=== PATIENT | female | born 1965 | race Caucasian/White ===

== ENCOUNTER → 2018-12-15 | Outpatient (CLI) | payer OTHER ==
--- NOTE | 2018-12-15 12:16 | US ---
EXAMINATION TYPE: US kidneys/renal and bladder DATE OF EXAM: 12/15/2018 COMPARISON: NONE CLINICAL HISTORY: N39.0 RECURRENT UTI. EXAM MEASUREMENTS: Right Kidney: 9.2 x 8.6 x 4.6 cm Left Kidney: 9.8 x 5.6 x 4.9 cm Post Void Residual Volume: 105.1 mL Right Kidney: No hydronephrosis or masses seen Left Kidney: No hydronephrosis or masses seen Bladder: wnl Bilateral Jets seen: yes Normal Post Void Residual: no, as volume is greater than 50.0ml. There is no evidence for hydronephrosis at this point in time. No nephrolithiasis is seen. No andrea s are identified. The urinary bladder is not greatly distended on images saved. Bilateral ureteral jets are seen. Exam noted suboptimal due to patient's underlying medical condition of mental handicap, this affects patient's ability to follow commands and breath-hold. Scanning of bilateral kidneys shows no gross hy dronephrosis or suspicious masses. IMPRESSION: Suboptimal study without hydronephrosis identified bilaterally.
== END ==
LOC: RADUSWWP 10:57 → EEVIPCON 11:00
PROVIDERS: ATTEND Urology
DX: N39.0 Urinary tract infection, site not specified (principal)
CPT/HCPCS: 76770

== ENCOUNTER → 2019-04-09 | Outpatient (CLI) | payer OTHER ==
[2019-04-09 08:36] LABS: Basophils % (A) 0 %; Eosinophils # (A) 0.1 k/uL (0-0.7); Eosinophils % (A) 2 %; HCT 38.9 % (34.0-46.0); HGB 12.5 gm/dL (11.4-16.0); Lymphocytes # (A) 0.9 k/uL (1.0-4.8); Lymphocytes % (A) 23 %; MCH 28.6 pg (25.0-35.0); MCHC 32.2 g/dL (31.0-37.0); MCV 88.9 fL (80.0-100.0); Mean Platelet Volume 6.9; Monocytes # (A) 0.2 k/uL (0-1.0); Monocytes % (A) 6 %; Neutrophils # (A) 2.5 k/uL (1.3-7.7); Neutrophils % (A) 67 %; Platelet Count 215 k/uL (150-450); RBC 4.38 m/uL (3.80-5.40); RDW 13.1 % (11.5-15.5); WBC 3.7 k/uL (3.8-10.6)
[2019-04-09 16:49] LABS: Albumin 4.3 g/dL (3.80-4.90); Albumin/Globulin Ratio 2.05 (1.60-3.17); Anion Gap 7.8 mmol/L (4.00-12.00); Bilirubin, Conjugated 0.3 mg/dL (0.20-0.40); Bilirubin,Unconjugated 0.7 mg/dL; Calcium 9.6 mg/dL (8.7-10.3); Carbon Dioxide 26.2 mmol/L (21.6-31.8); Globulin 2.1 g/dL (1.6-3.3); Potassium 4.1 mmol/L (3.5-5.5); Total Protein 6.4 g/dL (6.2-8.2)
[2019-04-09 16:56] LABS: T4, Free (Free Thyroxine) 1.2 ng/dL (0.80-1.80)
[2019-04-09 17:06] LABS: Hemoglobin A1C 5.6 % (4.0-6.0)
== END | disposition home or self-care (01) ==
LOC: LABWHC1 07:51
PROVIDERS: ATTEND Nurse Practitioner Family
DX: Z51.81 Encounter for therapeutic drug level monitoring (principal); Z79.899 Other long term (current) drug therapy
CPT/HCPCS: 36415; 80053; 80061; 82248; 83036; 84439; 84443; 85025

== ENCOUNTER → 2021-02-21 | Outpatient (CLI) | payer OTHER ==
--- NOTE | 2021-02-21 09:55 | XR ---
EXAMINATION TYPE: XR abdomen complete w decub DATE OF EXAM: 02/21/2021 HISTORY: Pain. Technique: 3 views of the abdomen are submitted. Comparison: None. Findings: There is no convincing evidence of pneumoperitoneum. The Bowel gas pattern is nonspecific and nonobstructive. No sizable air-fluid levels are seen. No mass effects are noted. No renal calcifications are identified. IMPRESSION: 1. Nonspecific nonobstructive bowel gas pattern
== END | disposition home or self-care (01) ==
LOC: RADXRMAIN 09:14
PROVIDERS: ATTEND Family Medicine
DX: R10.9 Unspecified abdominal pain (principal)
CPT/HCPCS: 74021

== ENCOUNTER 2021-02-24 20:23 | Emergency (ER) | payer OTHER ==
[2021-02-24] MEDS ORDERED: SODIUM CHLORIDE 0.9% 1,000 ML IV STA (22:21)
[2021-02-24 23:44] LABS: Basophils % (A) 0 %; Chloride 103 mmol/L (98-107); Eosinophils # (A) 0.1 k/uL (0-0.7); Eosinophils % (A) 1 %; HCT 39.3 % (34.0-46.0); HGB 12.9 gm/dL (11.4-16.0); Lymphocytes # (A) 1.4 k/uL (1.0-4.8); Lymphocytes % (A) 26 %; MCHC 32.7 g/dL (31.0-37.0); MCV 88.7 fL (80.0-100.0); Monocytes # (A) 0.4 k/uL (0-1.0); Monocytes % (A) 7 %; Neutrophils # (A) 3.5 k/uL (1.3-7.7); Neutrophils % (A) 64 %; Platelet Count 228 k/uL (150-450); RBC 4.43 m/uL (3.80-5.40); RDW 12.9 % (11.5-15.5); WBC 5.5 k/uL (3.8-10.6)
[2021-02-24 23:46] LABS: ALT 21 U/L (4-34); AST 76 U/L (14-36); African American GFR (CKD) >90 (>60 ml/min/1.73 sqM); Albumin 4.2 g/dL (3.5-5.0); Alkaline Phosphatase 83 U/L (38-126); Amylase 61 U/L (30-110); Anion Gap 6 mmol/L; Blood Urea Nitrogen 21 mg/dL (7-17); Calcium 9.4 mg/dL (8.4-10.2); Carbon Dioxide 27 mmol/L (22-30); Glucose 97 mg/dL (74-99); Lipase 102 U/L (23-300); Non-African American GFR(CKD) 89 (>60 ml/min/1.73 sqM); Potassium 4.1 mmol/L (3.5-5.1); Sodium 136 mmol/L (137-145); Total Bilirubin 0.8 mg/dL (0.2-1.3); Total Protein 7.1 g/dL (6.3-8.2)
--- NOTE | 2021-02-24 23:48 | XR ---
EXAMINATION TYPE: XR KUB DATE OF EXAM: 02/24/2021 COMPARISON: 02/21/2021 HISTORY: Abdominal pain TECHNIQUE: 2 views upright FINDINGS: There is no sign of intestinal obstruction or pneumoperitoneum. Fecal pattern is fairly nor mal. There is no evidence of a mass. Lung bases are clear. There are no pathologic calcifications ove r the kidneys. IMPRESSION: Nonacute abdomen. No adverse change.
[2021-02-25 00:17] LABS: Appearance,Urine Cloudy (Clear); Bacteria,Urine Rare /hpf; Bilirubin,Urine Negative (Negative); Blood,Urine Negative (Negative); Color,Urine Yellow; Glucose,Urine (UA) Negative (Negative); Ketones,Urine 1+ (Negative); Leukocyte Esterase,Urine Large (Negative); Mucus,Urine Many /hpf; Nitrite,Urine Negative (Negative); Protein,Urine Trace (Negative); RBC,Urine 6 /hpf (0-5); Specific Gravity,Urine 1.022 (1.001-1.035); Squamous Epithelial Cell,Urine 10 /hpf (0-4); Urobilinogen,Urine <2.0 mg/dL (<2.0); WBC,Urine 72 /hpf (0-5)
[2021-02-25] MEDS ORDERED: cefTRIAXone IN SWFI 1,000 MG/10 ML SYRINGE IVP STA (00:42)
[2021-02-25 01:37] VITALS: RESP 18; TEMP 98.4
--- NOTE | 2021-02-25 01:49 | ED ---
Abdominal Pain HPI - General Chief Complaint: Abdominal Pain Stated Complaint: dehydrated, barely eating Time Seen by Provider: 02/24/21 21:33 Source: patient, Caregiver Limitations: altered mental status, physical limitation - History of Present Illness Initial Comments: 55-year-old female patient who is developmentally disabled presents to the emergency department today for evaluation of abdominal discomfort, constipation, decreased appetite. Sister whose caregiver states that she has had decreased food and fluid intake today. She believes she is dehydrated. States she's been having issues with constipation. Did see her primary care physician was given mineral enemas and glycerin suppositories which did cause her to have 2-3 small hard bowel movements. She also has taken magnesium citrate. Denies any fever or chills. Denies any vomiting. Patient does not communicate very well and sister provides all history. - Related Data Home Medications Medication Instructions Recorded Confirmed Citalopram Hydrobromide [CeleXA] 40 mg PO DAILY 02/24/21 02/24/21 Fluticasone Nasal [place] [Flonase 2 spr EA NOSTRIL HS 02/24/21 02/24/21 Nasal [place]] Glycerin Adult Suppository 1 supp RECTAL ONCE PRN 02/24/21 02/24/21 Lactulose 20 gm PO BID 02/24/21 02/24/21 Magnesium Citrate [Citrate of 296 ml PO ONCE PRN 02/24/21 02/24/21 Magnesia] Mineral Oil 133 ml RECTAL ONCE PRN 02/24/21 02/24/21 Nitrofurantoin Macrocrystal 100 mg PO DAILY 02/24/21 02/24/21 [Nitrofurantoin] Wheat Dextrin [Benefiber] 1 packet PO BID 02/24/21 02/24/21 risperiDONE [RisperDAL] 0.25 mg PO HS 02/24/21 02/24/21 Previous Rx's Medication Instructions Recorded Cephalexin [Keflex Susp] 10 ml PO BID #140 ml 02/25/21 Allergies Allergy/AdvReac Type Severity Reaction Status Date / Time No Known Allergies Allergy Verified 02/24/21 23:39 Review of Systems ROS Statement: Those systems with pertinent positive or pertinent negative responses have been documented in the HPI. ROS Other: All systems not noted in ROS Statement are negative. Past Medical History Past Medical History: No Reported History History of Any Multi-Drug Resistant Organisms: None Reported Past Surgical History: No Surgical Hx Reported Past Psychological History: Anxiety, Depression, Schizophrenia Smoking Status: Never smoker Past Alcohol Use History: None Reported Past Drug Use History: None Reported General Exam Limitations: altered mental status, physical limitation General appearance: alert, in no apparent distress Eye exam: Present: normal appearance, PERRL, EOMI. Absent: scleral icterus, conjunctival injection, periorbital swelling ENT exam: Present: normal exam, normal oropharynx, mucous membranes moist Respiratory exam: Present: normal lung sounds bilaterally. Absent: respiratory distress, wheezes, rales, rhonchi, stridor Cardiovascular Exam: Present: regular rate, normal rhythm, normal heart sounds. Absent: systolic murmur, diastolic murmur, rubs, gallop, clicks GI/Abdominal exam: Present: soft, normal bowel sounds. Absent: distended, tenderness, guarding, rebound, rigid Neurological exam: Present: alert, oriented X3, CN II-XII intact Psychiatric exam: Present: normal affect, normal mood Skin exam: Present: warm, dry, intact, normal color. Absent: rash Course Vital Signs 02/24/21 02/24/21 02/25/21 21:17 23:00 01:15 Temperature 98.6 F 98.3 F 98.4 F Pulse Rate 91 83 86 Respiratory 20 20 18 Rate Blood Pressure 143/92 130/86 133/80 O2 Sat by Pulse 97 98 98 Oximetry 02/25/21 02:06 Temperature 98.4 F Pulse Rate 85 Respiratory 18 Rate Blood Pressure 156/90 O2 Sat by Pulse 97 Oximetry Medical Decision Making - Medical Decision Making 55-year-old female patient presented with sister who is primary caregiver for evaluation of abdominal discomfort constipation. Physical examination revealed a soft nontender abdomen. Vitals are within normal ranges. Labs are unremarkable. KUB x-ray was obtained and showed fairly normal stool pattern. She did have urinary tract infection. We did give a milk and molasses enema which did provide a small bowel movement. They would like to be discharged home. We will treat for the UTI. We discussed [id number] remedies for constipation. They're instructed to follow-up with the primary care physician on Friday. Return parameters were discussed in detail. They verbalize understanding and agree with this plan. My attending is Dr. Aguilar. - Lab Data Result diagrams: 02/24/21 23:22 02/24/21 23:22 Lab Results 02/24/21 02/24/21 02/25/21 Range/Units 23:22 23:22 00:05 WBC 5.5 (3.8-10.6) k/uL RBC 4.43 (3.80-5.40) m/uL Hgb 12.9 (11.4-16.0) gm/dL Hct 39.3 (34.0-46.0) % MCV 88.7 (80.0-100.0) fL MCH 29.0 (25.0-35.0) pg MCHC 32.7 (31.0-37.0) g/dL RDW 12.9 (11.5-15.5) % Plt Count 228 (150-450) k/uL MPV 7.0 Neutrophils % 64 % Lymphocytes % 26 % Monocytes % 7 % Eosinophils % 1 % Basophils % 0 % Neutrophils # 3.5 (1.3-7.7) k/uL Lymphocytes # 1.4 (1.0-4.8) k/uL Monocytes # 0.4 (0-1.0) k/uL Eosinophils # 0.1 (0-0.7) k/uL Basophils # 0.0 (0-0.2) k/uL Sodium 136 L (137-145) mmol/L Potassium 4.1 (3.5-5.1) mmol/L Chloride 103 (98-107) mmol/L Carbon Dioxide 27 (22-30) mmol/L Anion Gap 6 mmol/L BUN 21 H (7-17) mg/dL Creatinine 0.75 (0.52-1.04) mg/dL Est GFR (CKD-EPI)AfAm >90 (>60 ml/min/1.73 sqM) Est GFR (CKD-EPI)NonAf 89 (>60 ml/min/1.73 sqM) Glucose 97 (74-99) mg/dL Calcium 9.4 (8.4-10.2) mg/dL Total Bilirubin 0.8 (0.2-1.3) mg/dL AST 76 H (14-36) U/L ALT 21 (4-34) U/L Alkaline Phosphatase 83 (38-126) U/L Total Protein 7.1 (6.3-8.2) g/dL Albumin 4.2 (3.5-5.0) g/dL Amylase 61 (30-110) U/L Lipase 102 (23-300) U/L Urine Color Yellow Urine Appearance Cloudy H (Clear) Urine pH 7.0 (5.0-8.0) Ur Specific [place] 1.022 (1.001-1.035) Urine Protein Trace H (Negative) Urine Glucose (UA) Negative (Negative) Urine Ketones 1+ H (Negative) Urine Blood Negative (Negative) Urine Nitrite Negative (Negative) Urine Bilirubin Negative (Negative) Urine Urobilinogen <2.0 (<2.0) mg/dL Ur Leukocyte Esterase Large H (Negative) Urine RBC 6 H (0-5) /hpf Urine WBC 72 H (0-5) /hpf Ur Squamous Epith Cells 10 H (0-4) /hpf Urine Bacteria Rare H (None) /hpf Urine Mucus Many H (None) /hpf - Radiology Data Radiology results: report reviewed, image reviewed 2 views of the abdomen are obtained. Pressure in its entirety. Impression by Dr. Ashley shows nonacute abdomen. No adverse change. Specifically reads fecal pattern is fairly normal. Disposition Clinical Impression: Decreased appetite, Urinary tract infection Disposition: HOME SELF-CARE Condition: Good Instructions (If sedation given, give patient instructions): Constipation (ED), Urinary Tract Infection in Women (ED) Additional Instructions: Consider using Dulcolax suppositories and fleets enemas [id number]. Follow-up with the primary care physician on Friday. Complete antibiotic prescription in full. Return to the emergency department for any new, worsening, or concerning symptoms. Prescriptions: Cephalexin [Keflex Susp] 10 ml PO BID #140 ml Is patient prescribed a controlled substance at d/c from ED?: No Referrals: None,Stated [Primary Care Provider] - 1-2 days Time of Disposition: 01:49
[2021-02-25 02:10] VITALS: BP 156/90; PULSE 85
== END 2021-02-25 02:06 | disposition home or self-care (01) ==
LOC: EC 20:23
DX: N39.0 Urinary tract infection, site not specified (principal); R63.0 Anorexia; F41.9 Anxiety disorder, unspecified; F32.9 Major depressive disorder, single episode, unspecified
CPT/HCPCS: 36415; 74018; 80053; 81001; 82150; 83690; 85025; 87086; 96361; 96374; 99284

== ENCOUNTER → 2021-09-12 | Outpatient (CLI) | payer OTHER ==
[2021-09-12 16:56] LABS: Basophils # (A) 0.02 X 10*3/uL (0.00-0.10); Basophils % (A) 0.6 %; Eosinophils # (A) 0.02 X 10*3/uL (0.04-0.35); Eosinophils % (A) 0.6 %; HCT 39.7 % (37.2-46.3); HGB 12.4 g/dL (12.0-15.0); Lymphocytes % (A) 22.9 %; MCH 29.7 pg (27.0-32.0); MCHC 31.2 g/dL (32.0-37.0); Mean Platelet Volume 10.4 fL (9.5-12.2); Monocytes # (A) 0.19 X 10*3/uL (0.20-1.00); Monocytes % (A) 5.4 %; Neutrophils # (A) 2.46 X 10*3/uL (1.80-7.70); Neutrophils % (A) 70.5 %; Platelet Count 241 X 10*3/uL (140-440); RBC 4.18 X 10*6/uL (4.10-5.20); RDW 12.7 % (11.5-14.5); WBC 3.49 X 10*3/uL (4.50-10.00)
[2021-09-12 19:14] LABS: African American GFR (CKD) 81.8 (60.0-200.0); Albumin 4.4 g/dL (3.8-4.9); Albumin/Globulin Ratio 1.88 (1.60-3.17); Anion Gap 10.4 mmol/L (4.00-12.00); BUN/Creat Ratio 20.46 Ratio (12.00-20.00); Blood Urea Nitrogen 18.5 mg/dL (9.0-27.0); Calcium 9.3 mg/dL (8.7-10.3); Carbon Dioxide 25.1 mmol/L (21.6-31.8); Chol/HDL Ratio 3.54 Ratio; Globulin 2.3 g/dL (1.6-3.3); HDL Cholesterol 54.8 mg/dL (40.00-60.00); LDL Cholesterol,Calculated 127.7 mg/dL (0.0-131.0); Non-African American GFR(CKD) 70.6 (60.0-200.0); Potassium 4.2 mmol/L (3.5-5.5); T4, Free (Free Thyroxine) 1.45 ng/dL (0.800-1.800); Total Bilirubin 0.7 mg/dL (0.30-1.20); Total Protein 6.7 g/dL (6.2-8.2); Triglycerides 57.6 mg/dL (0.00-149.00); VLDL Calculation 11.52 mg/dL (5.00-40.00)
== END | disposition home or self-care (01) ==
LOC: LABWHC1 08:14
PROVIDERS: ATTEND Family Medicine
DX: Z11.59 Encounter for screening for other viral diseases (principal); Z00.00 Encounter for general adult medical examination without abnormal findings
CPT/HCPCS: 36415; 80053; 80061; 84439; 84443; 85025; 86803

== ENCOUNTER → 2024-01-13 | Outpatient (CLI) | payer OTHER ==
[2024-01-13 15:33] LABS: Basophils # (A) 0.01 X 10*3/uL (0.00-0.10); Basophils % (A) 0.3 %; Eosinophils # (A) 0.12 X 10*3/uL (0.04-0.35); Eosinophils % (A) 3.1 %; HCT 37.1 % (37.2-46.3); HGB 12.2 g/dL (12.0-15.0); Lymphocytes # (A) 1.15 X 10*3/uL (0.90-5.00); Lymphocytes % (A) 29.3 %; MCHC 32.9 g/dL (32.0-37.0); MCV 91.2 FL (80.0-97.0); Mean Platelet Volume 9.7 FL (9.5-12.2); Monocytes # (A) 0.29 X 10*3/uL (0.20-1.00); Monocytes % (A) 7.4 %; NRBC Per 100 WBC 0 X 10*3/uL (0.00-0.01); Neutrophils # (A) 2.34 X 10*3/uL (1.80-7.70); Neutrophils % (A) 59.6 %; Platelet Count 252 X 10*3/uL (140-440); RBC 4.07 X 10*6/uL (4.10-5.20); RDW 12.8 % (11.5-14.5); WBC 3.92 X 10*3/uL (4.50-10.00)
[2024-01-13 16:05] LABS: ALT 15 U/L (8-44); AST 25 U/L (13-35); Albumin 4.3 g/dL (3.8-4.9); Albumin/Globulin Ratio 1.79 Ratio (1.60-3.17); Alkaline Phosphatase 88 U/L (41-126); Bilirubin, Conjugated <0.20 mg/dL (0.20-0.40); Bilirubin,Unconjugated >0.50 mg/dL (0.20-1.00); Blood Urea Nitrogen 17.9 mg/dL (9.0-27.0); Globulin 2.4 g/dL (1.6-3.3); Glucose 86 mg/dL (70-110); LDL Cholesterol,Calculated 128.6 mg/dL (0.0-131.0); T4, Free (Free Thyroxine) 1.45 ng/dL (0.80-1.80); Total Bilirubin 0.7 mg/dL (0.3-1.2); Total Protein 6.7 g/dL (6.2-8.2); VLDL Calculation 10.92 mg/dL (5.00-40.00)
== END | disposition home or self-care (01) ==
LOC: LABWHC1 08:53
PROVIDERS: ATTEND Nurse Practitioner Family
DX: Z51.81 Encounter for therapeutic drug level monitoring (principal); Z79.899 Other long term (current) drug therapy
CPT/HCPCS: 36415; 80061; 80076; 82565; 82947; 83036; 84439; 84443; 84520; 85025

== ENCOUNTER 2024-01-28 17:49 | Emergency (ER) | payer OTHER ==
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
[2024-01-28 20:28] LABS: Basophils % (A) 1 %; Eosinophils # (A) 0.1 k/uL (0-0.7); Eosinophils % (A) 1 %; HCT 38.1 % (34.0-46.0); HGB 12.7 gm/dL (11.4-16.0); Lymphocytes # (A) 1.4 k/uL (1.0-4.8); Lymphocytes % (A) 26 %; MCH 30.5 pg (25.0-35.0); MCHC 33.4 g/dL (31.0-37.0); MCV 91.1 fL (80.0-100.0); Monocytes # (A) 0.3 k/uL (0-1.0); Monocytes % (A) 6 %; Neutrophils # (A) 3.3 k/uL (1.3-7.7); Neutrophils % (A) 63 %; Platelet Count 261 k/uL (150-450); RBC 4.18 m/uL (3.80-5.40); RDW 12.7 % (11.5-15.5); WBC 5.3 k/uL (3.8-10.6)
[2024-01-28 20:48] LABS: Partial Thromboplastin Time 24.1 sec (22.0-30.0); Prothrombin Time 10.6 sec (10.0-12.5)
[2024-01-28 21:07] LABS: ALT 14 U/L (4-34); AST 29 U/L (14-36); African American GFR (CKD) >90 (>60 ml/min/1.73 sqM); Albumin 4.1 g/dL (3.5-5.0); Alkaline Phosphatase 99 U/L (38-126); Amylase 73 U/L (30-110); Anion Gap 7 mmol/L; Blood Urea Nitrogen 17 mg/dL (7-17); Calcium 9.2 mg/dL (8.4-10.2); Carbon Dioxide 25 mmol/L (22-30); Chloride 105 mmol/L (98-107); Glucose 79 mg/dL (74-99); Lipase 87 U/L (23-300); Non-African American GFR(CKD) 82 (>60 ml/min/1.73 sqM); Potassium 4.2 mmol/L (3.5-5.1); Sodium 137 mmol/L (137-145); Total Bilirubin 0.7 mg/dL (0.2-1.3); Total Protein 7.1 g/dL (6.3-8.2)
[2024-01-28 21:20] LABS: Appearance,Urine Clear (Clear); Bilirubin,Urine Negative (Negative); Blood,Urine Negative (Negative); Color,Urine Colorless; Glucose,Urine (UA) Negative (Negative); Ketones,Urine Negative (Negative); Leukocyte Esterase,Urine Moderate (Negative); Mucus,Urine Rare /hpf; Nitrite,Urine Negative (Negative); PH, Urine 6.5 (5.0-8.0); Protein,Urine Negative (Negative); RBC,Urine 1 /hpf (0-5); Specific Gravity,Urine 1.009 (1.001-1.035); Squamous Epithelial Cell,Urine 4 /hpf (0-4); Urobilinogen,Urine <2.0 mg/dL (<2.0); WBC,Urine 13 /hpf (0-5)
[2024-01-28 22:04] VITALS: BP 94/64; PULSE 74; RESP 18; TEMP 98.1
--- NOTE | 2024-01-28 22:12 | XR ---
EXAMINATION TYPE: XR KUB DATE OF EXAM: 01/28/2024 7:27 PM CLINICAL INDICATION:Female, 58 years old with history of constipation; MERGED WITH [facility] COMPARISON: 02/24/2021. TECHNIQUE: One radiographic view of the abdomen was obtained. FINDINGS: The bowel gas pattern is nonspecific without dilated loops of small or large bowel. There i s no evidence for organomegaly or pneumoperitoneum. The osseous structures are intact. No abnormal calcifications are present. Fecal material and gas are demonstrated throughout the colon and rectum. IMPRESSION: Nonspecific bowel gas pattern without radiographic evidence for acute process.
--- NOTE | 2024-01-28 22:14 | XR ---
EXAMINATION TYPE: XR chest 2V DATE OF EXAM: 01/28/2024 7:52 PM CLINICAL INDICATION:Female, 58 years old with history of Chest Pain; H COMPARISON: Chest radiographs from TECHNIQUE: XR chest 2V Frontal and lateral views of the chest. FINDINGS: Lungs/Pleura: There is no evidence of pleural effusion, focal consolidation, or pneumothorax. Pulmonary vascularity: Unremarkable. Heart/mediastinum: Cardiomediastinal silhouette is unremarkable. Musculoskeletal: No acute osseous pathology. IMPRESSION: No acute cardiopulmonary disease/process.
== END 2024-01-28 23:05 | disposition home or self-care (01) ==
LOC: EC 17:49
DX: F41.9 Anxiety disorder, unspecified (principal); F32.A Depression, unspecified; Z79.899 Other long term (current) drug therapy; Z20.822 Contact with and (suspected) exposure to COVID-19
CPT/HCPCS: 36415; 71046; 74018; 80053; 81001; 82150; 83690; 83735; 84484; 85025; 85610; 85730; 87636; 93005; 99284